=== PATIENT | female | born 1960 | race Two or more races ===

== ENCOUNTER → 2016-08-12 | Outpatient (CLI) | payer SELFPAY | END | disposition home or self-care (01) | LOC: PTH.S 07:43 | DX: Z48.288 Encounter for aftercare following multiple organ transplant (principal); Z94.0 Kidney transplant status; Z94.83 Pancreas transplant status; Z79.899 Other long term (current) drug therapy ==

== ENCOUNTER → 2016-09-12 | Outpatient (CLI) | payer OTHER | END | disposition home or self-care (01) | LOC: RAD.S 07:32 | DX: Z12.31 Encounter for screening mammogram for malignant neoplasm of breast (principal) ==